=== PATIENT | female | born 1960 | race American Indian/Alaskan Native ===

== ENCOUNTER 2021-12-07 11:17 | Emergency (ER) | payer MEDICAID, MEDICARE ==
[2021-12-07] MEDS ORDERED: ASPIRIN 325 MG TAB PO ONE (11:41)
--- NOTE | 2021-12-07 12:26 | XRay Report ---
CHEST 2 VIEWS INDICATION / CLINICAL INFORMATION: chest pain. COMPARISON: 07/01/2013 FINDINGS: SUPPORT DEVICES: None. HEART / MEDIASTINUM: No significant abnormality. LUNGS / PLEURA: No significant pulmonary or pleural abnormality. No pneumothorax. ADDITIONAL FINDINGS: No significant additional findings. IMPRESSION: 1. No acute findings. Signer Name: Bruce Jacome DO Signed: 12/07/2021 12:22 PM Workstation Name: [id number]
--- NOTE | 2021-12-07 12:36 | Emergency Department Report ---
ED Chest Pain HPI - General Chief Complaint: Chest Pain Stated Complaint: LT SIDE CHEST PAIN Time Seen by Provider: 12/07/21 12:26 Source: patient Mode of arrival: Ambulatory Limitations: No Limitations - History of Present Illness Initial Comments: Patient is 61 years old female with history of stroke in 2013 with residual left-sided weakness. Patient presented to the ER complaining of left sided chest pain started this morning around 9 AM. Patient stated that pain is sharp with no radiation. She denied any shortness of breath, cough, fever or chills. Patient stated that she had similar pain few months ago and it went away by itself. MD Complaint: chest pain -: This morning Onset: during rest Pain Location: left chest Pain Radiation: none Severity: moderate Severity scale (0 -10): 8 Quality: sharp Improves With: nothing - Related Data Home Medications Medication Instructions Recorded Confirmed Last Taken lisinopriL [Zestril] 20 mg PO QDAY 08/10/13 08/10/13 08/10/13 06:45 20 Previous Rx's Medication Instructions Recorded Last Taken Type Aspirin 325 mg PO QDAY #30 tablet 07/12/13 08/10/13 06:45 Rx 325 hydrALAZINE [Apresoline TAB] 25 mg PO Q8HR #90 tablet 07/12/13 08/10/13 06:45 Rx 25 Allergies Allergy/AdvReac Type Severity Reaction Status Date / Time No Known Allergies Allergy Verified 11/18/13 10:38 Heart Score - HEART Score History: Slightly suspicious EKG: Non-specific Age: 45-65 Risk factors: 1-2 risk factors Troponin: < normal limit HEART Score: 3 - EKG Read Time Time EKG Completed: 11:28 EKG Read Time: 11:29 - Critical Actions Critical Actions: 0-3 pts:0.9-1.7%risk of adverse cardiac event.Candidate for discharge ED Review of Systems ROS: Stated complaint: LT SIDE CHEST PAIN Other details as noted in HPI Comment: All other systems reviewed and negative Constitutional: denies: chills, fever Respiratory: denies: cough, orthopnea, shortness of breath, SOB with exertion, SOB at rest Cardiovascular: chest pain. denies: palpitations, dyspnea on exertion Gastrointestinal: denies: abdominal pain, nausea, vomiting, diarrhea, constipation, hematemesis, melena, hematochezia Musculoskeletal: denies: back pain Neurological: denies: headache, weakness, numbness, paresthesias, confusion, abnormal gait ED Past Medical Hx - Past Medical History Previous Medical History?: Yes Hx Hypertension: Yes Hx CVA: Yes (left side weakness) - Surgical History Past Surgical History?: Yes Additional Surgical History: tubaligation, c section - Social History Smoking Status: Former Smoker Substance Use Type: None - Medications Home Medications: Home Medications Medication Instructions Recorded Confirmed Last Taken Type Aspirin 325 mg PO QDAY #30 tablet 07/12/13 08/10/13 08/10/13 06:45 Rx 325 hydrALAZINE [Apresoline TAB] 25 mg PO Q8HR #90 tablet 07/12/13 08/10/13 08/10/13 06:45 Rx 25 lisinopriL [Zestril] 20 mg PO QDAY 08/10/13 08/10/13 08/10/13 06:45 History 20 ED Physical Exam - General Limitations: No Limitations General appearance: alert, in no apparent distress - Head Head exam: Present: atraumatic, normocephalic, normal inspection - Eye Eye exam: Present: normal appearance - ENT ENT exam: Present: normal exam, normal orophraynx, mucous membranes moist - Neck Neck exam: Present: normal inspection, full ROM. Absent: tenderness, meningismus, lymphadenopathy, thyromegaly - Respiratory Respiratory exam: Present: normal lung sounds bilaterally, chest wall tenderness - Cardiovascular Cardiovascular Exam: Present: regular rate, normal rhythm, normal heart sounds - GI/Abdominal GI/Abdominal exam: Present: soft, normal bowel sounds. Absent: distended, tenderness, guarding, rebound, rigid, organomegaly, mass, bruit, pulsatile mass, hernia - Extremities Exam Extremities exam: Present: normal inspection, full ROM, normal capillary refill. Absent: tenderness, pedal edema, joint swelling, calf tenderness - Back Exam Back exam: Present: normal inspection, full ROM. Absent: CVA tenderness (R), CVA tenderness (L) - Neurological Exam Neurological exam: Present: alert, oriented X3, CN II-XII intact, motor sensory deficit (Chronic weakness to the left upper and lower extremity secondary to previous stroke.) - Psychiatric Psychiatric exam: Present: normal mood - Skin Skin exam: Present: warm, intact, normal color ED Course Vital Signs 12/07/21 12/07/2122 11:37 12:31 12:33 Temperature 97.1 F L 98.3 F Pulse Rate 70 64 Respiratory 18 18 15 Rate Blood Pressure Blood Pressure 144/69 [Right] O2 Sat by Pulse 99 99 99 Oximetry 12/07/21 12/07/21 12/07/21 12:45 13:01 13:15 Temperature Pulse Rate 69 66 64 Respiratory 17 13 13 Rate Blood Pressure 133/49 133/49 121/40 Blood Pressure [Right] O2 Sat by Pulse 100 99 95 Oximetry 12/07/21 12/07/21 12/07/21 13:31 13:45 14:01 Temperature Pulse Rate 64 62 61 Respiratory 11 L 14 11 L Rate Blood Pressure 126/47 126/47 126/53 Blood Pressure [Right] O2 Sat by Pulse 98 99 99 Oximetry 12/07/21 12/07/21 12/07/21 14:15 14:30 15:07 Temperature Pulse Rate 62 65 65 Respiratory 10 L 13 25 H Rate Blood Pressure 126/53 128/65 128/65 Blood Pressure [Right] O2 Sat by Pulse 99 100 100 Oximetry 12/07/21 12/07/21 15:15 15:30 Temperature Pulse Rate 64 66 Respiratory 14 14 Rate Blood Pressure 128/65 132/63 Blood Pressure [Right] O2 Sat by Pulse 98 98 Oximetry ED Medical Decision Making - Lab Data Result diagrams: 12/07/21 12:12 12/07/21 12:12 - EKG Data -: EKG Interpreted by De EKG shows normal: sinus rhythm Rate: normal - EKG Data Interpretation: no acute changes - Radiology Data Radiology results: report reviewed - Medical Decision Making Patient is 61 years old female with history of stroke in 2012 with residual left-sided weakness. Patient presented to the ER complaining of left sided chest pain started this morning around 9 AM. Patient stated that pain is sharp with no radiation. She denied any shortness of breath, cough, fever or chills. Patient stated that she had similar pain few months ago and it went away by itself. EKG is unremarkable. Labs reviewed and is negative except for elevated D-dimer. Patient had a CTA chest which is negative for PE or any other acute pathology. Patient chest pain is atypical and reproducible. Patient's symptoms most likely related to costochondritis however patient strongly advised to follow-up with her primary care physician for outpatient cardiac work-up and referral to dance choreographer. Patient advised to return to the ER if she develop any new symptoms. Critical care attestation.: If time is entered above; I have spent that time in minutes in the direct care of this critically ill patient, excluding procedure time. ED Disposition Clinical Impression: Acute chest pain Disposition: HOME / SELF CARE / HOMELESS Is pt being admited?: No Condition: Stable Instructions: Chest Pain (ED), Nonspecific Chest Pain, Adult, [id number] Referrals: PRIMARY MD DIPIKA [Primary Care Provider] - 3-5 Days ARMAAN GAINES MD [Staff Physician] - 3-5 Days
[2021-12-07 13:00] LABS: Basophils # (Auto) 0.1 K/mm3 (0.0-0.1); Basophils % (Auto) 1.1 % (0.0-1.8); Eosinophils # (Auto) 0.2 K/mm3 (0.0-0.4); Eosinophils % (Auto) 3.7 % (0.0-4.3); Hematocrit 35.5 % (30.3-42.9); Hemoglobin 11.4 gm/dl (10.1-14.3); Lymphocytes # (Auto) 2.3 K/mm3 (1.2-5.4); Lymphocytes % (Auto) 36.8 % (13.4-35.0); Mean Corpuscular HGB Conc 32 % (30-34); Mean Corpuscular Volume 85 fl (79-97); Monocytes # (Auto) 0.4 K/mm3 (0.0-0.8); Monocytes % (Auto) 5.8 % (0.0-7.3); Platelet Count 298 K/mm3 (140-440); Red Blood Count 4.16 M/mm3 (3.65-5.03); Red Cell Distribution Width 14.8 % (13.2-15.2)
[2021-12-07 13:18] LABS: Alanine Aminotransferase 9 units/L (7-56); Albumin 4.9 g/dL (3.9-5); BUN/Creatinine Ratio 31; Blood Urea Nitrogen 31 mg/dL (7-17); Calcium 9.8 mg/dL (8.4-10.2); Hemolysis Index 12
[2021-12-07 14:15] LABS: INR 0.93 (0.87-1.13)
[2021-12-07 16:14] VITALS: BP 132/63
--- NOTE | 2021-12-07 16:26 | Cat Scan Report ---
CT angio chest INDICATION / CLINICAL INFORMATION: CHEST PAIN. TECHNIQUE: Axial CT images were obtained through the chest after injection of IV contrast. 3 plane MIP and/or 3D reconstructions were produced. All CT scans at this location are performed using CT dose reduction f or ALARA by means of automated exposure control. COMPARISON: None available. FINDINGS: PULMONARY ARTERIES: No pulmonary emboli. HEART: No significant abnormality. MEDIASTINUM / ARMANDO: No significant abnormality. LUNGS: Lungs are clear No pleural effusion. No pneumothorax. ADDITIONAL FINDINGS: None. UPPER ABDOMEN: No acute findings. SKELETAL STRUCTURES: No significant osseous abnormality. IMPRESSION: 1. No CT evidence for pulmonary embolism. 2. No acute findings. Signer Name: River Carroll MD Signed: 12/07/2021 4:21 PM Workstation Name: [id number]
--- NOTE | 2021-12-11 11:39 | Electrocardiograph Report ---
[facility] Test Date: 2021-12-07 Test Time: 11:28:42 Pat Name: SCAR KERR Department: Room: Gender: F Program Support Assistant: Alessandra HAUSER RN : 1960 Requested By: LOU OVALLES Order Number: [id number] Reading MD: Raúl Lindquist Measurements Intervals Walker Rate: 70 P: 62 TX: 190 QRS: 47 QRSD: 76 T: 39 QT: 381 QTc: 411 Interpretive Statements Sinus rhythm Probable left atrial enlargement Consider anteroseptal infarct No previous ECG available for comparison Electronically Signed On 12-11-2021 11:38:59 EDT by Raúl Lindquist
== END 2021-12-07 17:07 | disposition home or self-care (01) ==
LOC: ED 11:17
DX: R07.9 Chest pain, unspecified (principal); I10 Essential (primary) hypertension; Z86.73 Personal history of transient ischemic attack (TIA), and cerebral infarction without residual deficits; Z98.890 Other specified postprocedural states; Z87.891 Personal history of nicotine dependence
CPT/HCPCS: 36415; 71046; 71275; 80053; 83880; 84484; 85025; 85379; 85610; 85730; 93005; 99284; Q9967